=== PATIENT | female | born 1930 | race Caucasian/White ===

== ENCOUNTER 2016-10-25 23:39 | Emergency (ER) | payer MEDICARE ==
[~2016-10-25] VITALS: Ht 154.9 cm; Wt 41.7 kg
[~2016-10-25 23:39] MED LIST: ASPIRIN 81MG TA81 MG PO; CALAN SR240 MG PO; DIAZEPAM5 M1 PO; GLUCOPHAGE500 MG PO; LIPITOR10 MG PO; LISINOPRIL 10MG10 MG PO; LOSARTAN POTAS100 MG PO; LOSARTAN POTASS50 MG PO; LOVENOX 3030 MG/0.3 IJ; LOVENOX40 MG/0.4 SC; NIACIN250 MG PO; NORCO 325 MG-51 TAB PO; TOPROL XL 25MG25 MG PO; VALIUM 2MG TABLE2 MG PO; VENTOLIN H0.09 MG/Ac IH; VITAMIN D1000 IU PO; Zithromax500 MG PO
--- NOTE | 2016-10-26 00:07 | Emergency Room Report ---
History of Present Illness Time Seen by [id number] Presenting Problem in Triage Pt arrived:Walked Presenting Problem:PT ADVISES THAT SHE FELL ONTO A LAMINATE FLOOR. PT HAS MULTIPLE SKIN TEARS ON ARMS AND LEGS. 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 N Clinical Suspician of Infection? N Mental Status: 1 - Regular (Normal Baseline) Sepsis Risk:Low Sepsis Risk Have you (or family members/close friends) recently traveled outside the [place]? N If Yes, where/when: Have you had exposure to infectious disease within the past month? N TB? Other? Specify: Source patient, RN notes reviewed, family, old records Exam Limitations no limitations Comment accidental fall with head and facial trauma but no loc and has lac lt upper ext and has lt rib and upper abd pain Cardiac Chest Pain Chest pain indicative of cardiac No Timing/Duration this evening Severity moderate ALLERGIES Coded Allergies: Tetanus Vaccines and Toxoid (TETANUS VACCINES & TOXOID) (08/15/16) streptomycin (08/15/16) Home Medications Active Scripts HYDROCODONE/ACETAMINOPHEN ([place] 5-325 Tablet) 1 TAB PO Q6HP PRN MODERATE PAIN #60 TAB Prov: 08/19/16 Reported Medications Diazepam (Valium 2MG) 2 MG PO TID PRN Albuterol Sulfate (Ventolin Hfa) 0.09 MG IH QID METFORMIN HCL (Glucophage) 500 MG PO TID Metoprolol Succinate Xl (Toprol Xl) 25 MG PO DAILY Atorvastatin Calcium (Lipitor 10MG) 10 MG PO QHS ASPIRIN (Aspirin) 81 MG PO DAILY Verapamil Hcl (Calan SR 240MG) 240 MG PO DAILY Losartan Potassium (Losartan 50MG) 50 MG PO DAILY #30 TAB CHOLECALCIFEROL (VITAMIN D3) (Vitamin D3) 1,000 IUNITS PO DAILY History Medical History General CAD? Yes Angina: No NM: Yes Hypertension? Yes Hyperlipidemia? Yes CHF? No DVT? No PE? No COPD? No Asthma? No Anemia? Yes GERD? Yes Gastric ulcers? No GI Bleed? No Hernia? No Thyroid Problems? No Hypothyroidism? No CVA? No Seizures? No Diabetes? Yes Insulin Dependent: No Insulin Pump: No Home FSBS? Yes Renal Insuffiency? No End Stage Renal Disease? No UTI? No Stones? Yes BPH? No GB Disease: Yes Nephritic Syndrome? No Asplenia? No Hepatitis? No Sickle Cell Disease? No Arthritis? Yes Migraines? No Cataracts? Yes Glaucoma? No MRSA? No HIV? 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 Yes Depression? Yes Cancer? Yes Site: SKIN More? Yes Additional hx: MACULAR DEG-LEFT EYE Immunization Hx DT/Tetanus N Flu REFUSES Pneumonia Refuses Surgical Hx Previous Surgery?Y Coronary Artery Bypass ANGIOPLASTY PARTIAL RIGHT HIP REPLACE Family History Family Hx Diabetes Yes CAD Yes Hypertension Yes Hyperlipidemia Yes Cancer No TB Yes Social History Smoking Hx Smoker: Current Every Day Smoker Tobacco: Yes Type Cigarettes Packs/day 1 1/2 - 2 Packs Alcohol Alcohol: No Drugs none Review of Systems All Other Systems Reviewed and Negative Constitutional denies fever Eyes denies drainage ENT denies: ear discharge, nose discharge. Respiratory see HPI, denies cough, denies shortness of breath, other Cardiovascular denies chest pain, denies palpitations Gastrointestinal see HPI, abdominal pain, denies diarrhea, denies vomiting Genitourinary denies: dysuria, frequency, hesitancy, hematuria. Musculoskeletal denies back pain, denies joint pain, denies joint swelling, denies neck pain Skin see HPI, denies rash Psychiatric/Neurological headache, denies seizure Physical Exam Vital Signs Vital Signs Date Time Temp Pulse Resp B/P Pulse O2 O2 Flow FiO2 Ox Delivery Rate 10/26 0223 79 20 150/95 99 10/26 0050 69 20 182/73 99 10/25 2346 98.4 57 18 195/66 98 - WBC >12,000 or <4,000 or 10% bands? 2 or more SIRS Criteria Met? B/P:150/95 MAP:109 Creatinine >2.0? UA output<0.5ml/kg/hr for 2 hrs? Platelet count >100,000? Lactate >2.0mmol/1? INR >1.2 or PTT > than 60 sec? Evidence of Organ Dysfunction? Provider documented clinical suspician of infection? N Sepsis Criteria Count: 0 Sepsis Risk: Low Sepsis Risk General Appearance no apparent distress Eye Exam - bilateral eye PERRL, bilateral eye EOMI Ear, Nose, Throat lt facial bruising and tenderness and facial bruising noted Neck supple Respiratory Status No: respiratory distress. Lung Sounds bilateral: lungs clear. left: decreased breath sounds. 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 No Results/Orders Laboratory Tests 10/26/16 0010: Amylase 79, Lipase 269 10/26/16 0010: Sodium 138, Potassium 4.5, Chloride 105, Carbon Dioxide 25, BUN 19 H, Creatinine 1.1 H, Estimated Creat Clear 24 L, Estimated GFR (MDRD) 47 L, Glucose 191 H, Calcium 9.4, Total Bilirubin 0.2, AST 42 H, ALT 31, Alkaline Phosphatase 107, Total Protein 6.7, Albumin 3.6, Globulin 3.1, Albumin/Globulin Ratio 1.2, WBC 10.0, RBC 3.56 L, Hgb 10.8 L, Hct 34.4 L, MCV 96.6, RDW 14.7, Plt Count 217, MPV 9.2, Gran % 71.5, Gran # 7.1, Lymphocytes % 19.9, Monocytes % 6.2, Eosinophils % 2.0, Basophils % 0.3, Lymphocytes # 2.0, Monocytes # 0.6, Eosinophils # 0.2, Basophils # 0.0, PUBS MCHC 31.5 L, MCH 30.4 Current Medication Orders Sig/Asndip Start time Last Medication Dose Route Stop Time Status Admin Lidocaine HCl 20 ML ONCE ONE 10/26 129 DC 10/26 SC 10/26 130 011 Multi-Ingredient 2 UDP ONCE ONE 10/26 114 DCr 10/26 Ointment TP 01/25 0116 0116 Sodium Chloride 1,000 ML .Q1H1M 10/26 0045 DC 10/26 IV 10/26 0145 0049 Sodium Chloride 10 ML PRN PRN 10/26 004 AC IV 10/27 0045 Sodium Chloride 1,000 ML .STK-MED ONE 10/26 0042 DC IV Multi-Ingredient 0 .STK-MED ONE 10/26 0037 DCr Ointment TP Sodium Chloride 10 ML PRN PRN 10/26 0015 AC IV 10/27 001 Lidocaine HCl 0 .STK-MED ONE 10/26 0000 DC .ROUTE Orders Procedure Date/time Status DIET-NOTHING BY MOUTH 10/[address] ABD & PELVIS W/ CONTRAST 10/[address] SCAN REQ 10/26 41 Complete PELVIS AP ONLY 10/26 004 Active LIPASE 10/26 004 Complete AMYLASE 10/26 004 Complete IV SALINE LOCK 10/[address] SINUS (MAX-FACIAL W/O CONT) 10/[address] HEAD W/O CONTRAST 10/[address] CERVICAL SPINE W/O CONT. 10/[address] SCAN REQ 10/[address] HEAD REQ 10/[address] SCAN REQ 10/26 0000 Complete [id number] VIEWS 10/26 Active CBC WITH AUTO DIFF 10/25 235 Complete CHEM 12 PROFILE 10/25 2358 Complete XRAY/CT/US XRAY/CT/US 1 XRAY chest, pelvis, rib XR interpretation by reviewed by me Xray Results no fracture seen XRAY/CT/US 2 CT head, C-spine, abdomen, pelvis, sinus CT interpretation by discussed w/radiologist Time results known: 234 CT Results abnormal (facial fx ) Procedures Laceration/Wound Repair Laceration/Wound Repair Risks/benefits discussed with pt/guardian? Yes Tetanus status up to date Wound Location upper arm Wound Length (cm) 5 Wound's Depth, Shape superficial Wound Explored no FB identified Risk of retained FB explained to pt/guardian? Yes Irrigated w/ Saline (ccs) 0 Wound Prep Hibiclens, Saline Anesthesia 1% Lidocaine, Local Volume Anesthetic (ccs) 3 Wound Debrided none Wound Repaired With sutures Suture Size/Type 5:0, 4:0, Ethilon Layer Closure No Total Number Sutures 13 Sterile Dressing Applied Yes Splint Applied No Sling Applied No Departure Departure Time of Disposition 021 Disposition DC Home or Self Care(routine) Clinical Impression Primary Impression: Facial fracture due to fall Secondary Impressions: Abdominal contusion Qualifiers: Encounter type: initial encounter Qualified Code: S30.1XXA - Contusion of abdominal wall, initial encounter Anemia Qualifiers: Anemia type: unspecified type Qualified Code: D64.9 - Anemia, unspecified Fall Qualifiers: Encounter type: initial encounter Qualified Code: W19.XXXA - Unspecified fall, initial encounter Laceration Renal insufficiency Condition STABLE Referrals Chris Murphy MD (Family) Patient Instructions DI for Facial Fracture Additional Instructions see pcp for follow up and suture out 12 days Discharge Counseling Counseled pt/family regarding diagnosis, test results, follow up needs ED Critical Care Critical Care No at 0242
[2016-10-26 00:20] LABS: HEMOGLOBIN 10.8 g/dL (12.2-16.2); LYMPH % 19.9 % (10-50.0)
[2016-10-26 02:51] VITALS: BP 186/79
--- NOTE | 2016-10-26 08:57 | RADIOLOGY REPORT PS360 ---
[id number] VIEWS HISTORY: LEFT RIB PAIN FOLLOWING FALL ORDERING PHYSICIAN: Char Jones MD PATIENT AGE: 86 years COMPARISON: None FINDINGS: A frontal view of the chest shows prior median sternotomy. There is cardiomegaly without failure with chronic interstitial changes.. Multiple views of the Left ribs were obtained. Nondisplaced fracture involves the lateral aspect of left seventh rib. Also noted is right hydronephrosis IMPRESSION: 1. Nondisplaced left seventh rib fracture with chronic changes. 2. Right hydronephrosis
--- NOTE | 2016-10-26 08:58 | RADIOLOGY REPORT PS360 ---
PELVIS AP ONLY HISTORY: Pain following injury fall ORDERING PHYSICIAN: Char Jones MD PATIENT AGE: 86 years COMPARISON: None FINDINGS: Bipolar right hip prosthesis is present. No obvious fracture or dislocation. Incidental note made of right hydronephrosis with contrast in the right dilated renal collecting system from the recent CT scan IMPRESSION: No acute fracture
--- NOTE | 2016-10-26 10:28 | RADIOLOGY REPORT PS360 ---
CT HEAD W/O CONTRAST HISTORY: Headache following injury FALL ORDERING PHYSICIAN: Char Jones MD PATIENT AGE: 86 years COMPARISON: 05/30/2015 TECHNIQUE: Axial images obtained without contrast. Brain and bone windows reviewed. FINDINGS: No midline shift, mass effect, intracranial hemorrhage, hydrocephalus, or extra-axial fluid collection is evident. There is generalized atrophy with hypoattenuation in the periventricular and subcortical region consistent with ischemic gliotic change from microvascular disease. No acute intracranial hemorrhage. No evidence of epidural or subdural hematoma. Hyperdensity left parieto-occipital region probably related to developing calcification The calvarium has an unremarkable appearance. No mastoid effusion. The visualized paranasal sinuses are unremarkable. IMPRESSION: 1. Atrophy with chronic ischemic change. 2. Probable parenchymal calcification left parietal occipital region may be confirmed with follow-up.
--- NOTE | 2016-10-26 10:32 | RADIOLOGY REPORT PS360 ---
CT CERVICAL SPINE W/O CONT INDICATION: FALL ORDERING PHYSICIAN: Char Jones MD PATIENT AGE: 86 years COMPARISON: None TECHNIQUE: Axial images are obtained without contrast. Sagittal and coronal reformatted images are reviewed as well. FINDINGS: Normal alignment. No fracture or dislocation. There is diffuse osteopenia. Multilevel degenerative disc disease with facet arthritic change. Osteosclerosis involves the right angle of the mandible anteriorly and may be related to an impacted molar. Upper thoracic images show fibrotic changes. IMPRESSION: 1. No acute fracture. 2. Osteopenia with multilevel degenerative disc disease and facet arthritic change
--- NOTE | 2016-10-26 10:37 | RADIOLOGY REPORT PS360 ---
CT SINUS (MAX-FACIAL W/O CONT) CLINICAL INDICATION: Facial pain, jaw pain, eye pain and injury, swelling and bruising over left eye cheek and chin FALL ORDERING PHYSICIAN: Char Jones MD PATIENT AGE: 86 years COMPARISON: None TECHNIQUE:Axial, sagittal, and coronal images are generated and reviewed without contrast COMPARISON: None FINDINGS:Minimally displaced fracture involves the lateral wall the left maxillary sinus. Minimally depressed fracture involving the left inferior orbital floor posteriorly. Air-fluid level left maxillary sinus. There is left facial soft tissue swelling and mild rightward nasal septal deviation. Bilateral TMJ osteoarthritis. Impacted right mandibular molar posteriorly. IMPRESSION: 1. Minimally displaced fractures of the lateral wall of the left maxillary sinus and infraorbital wall on the left
--- NOTE | 2016-10-26 10:52 | RADIOLOGY REPORT PS360 ---
CT ABD PELVIS W/ CONTRAST CLINICAL INDICATION: Left upper quadrant pain following injury FALL, RUQ PAIN ORDERING PHYSICIAN: Char Jones MD PATIENT AGE: 86 years COMPARISON: None TECHNIQUE: Axial images obtained with sagittal and coronal reformats. PROCEDURE: Oral Contrast: None IV Contrast: 75 mL Isovue-370 . FINDINGS: Lower thorax: Nondisplaced left seventh rib fracture noted. Chronic changes in the lung bases. Mitral valve annular calcification ABDOMEN: Liver: Coarse calcification at the hepatic dome. No hepatic laceration Gallbladder: Cholelithiasis Pancreas: No masses or peripancreatic fluid collections. Spleen: Unremarkable. Adrenals: Unremarkable Kidneys/ureters: Severe right and mild left renal pelvocaliectasis. Ureters do not appear dilated but obscured by motion artifact. No obvious obstructing ureteral calculi. Stomach bowel: Diverticulosis. Appendix: No evidence of appendicitis. PELVIS: Reproductive: Unremarkable Bladder: Distended urinary bladder ABDOMEN & PELVIS: Peritoneum: There is somewhat edematous appearance of the mid and upper abdomen question trace ascites. Lymph nodes: No enlarged lymph nodes apparent. Vasculature: No evidence of abdominal aortic aneurysm. No retroperitoneal hemorrhage evident. Bones: There is suggestion of a nondisplaced left seventh rib fracture laterally with minimal cortical depression actually better seen on the rib detail films. Artifact is present from right hip prosthesis IMPRESSION: 1. Severe right and mild left renal pelvocaliectasis which may be due to UPJ stenosis. 2. Edematous appearance of the mid and upper abdomen with question trace ascites etiology indeterminate. Follow-up recommended. 3. Left seventh rib fracture. 4. Other nonacute findings as described above
== END 2016-10-26 03:05 | disposition home or self-care (01) ==
LOC: ER 23:39
PROVIDERS: Emergency Medicine
PROC: 0HQBXZZ Repair Right Upper Arm Skin, External Approach (ICD-10-PCS; principal; 2016-10-25)
DX: S30.1XXA Contusion of abdominal wall, initial encounter (principal); S41.111A Laceration without foreign body of right upper arm, initial encounter; W01.10XA Fall on same level from slipping, tripping and stumbling with subsequent striking against unspecified object, initial encounter; Y92.009 Unspecified place in unspecified non-institutional (private) residence as the place of occurrence of the external cause; I10 Essential (primary) hypertension; Z72.0 Tobacco use; K21.9 Gastro-esophageal reflux disease without esophagitis
CPT/HCPCS: Q9967

== ENCOUNTER 2017-01-14 21:48 | Inpatient (IN) | payer MEDICARE ==
[~2017-01-14] VITALS: Ht 154.9 cm; Wt 45.1 kg
[2017-01-14 21:52] VITALS: BP 180/71
[2017-01-14] MEDS ORDERED: GLUCOPHAGE 850850 MG PO (22:01)
[2017-01-14] MEDS ORDERED: NIACIN250 MG PO (22:02)
[2017-01-14] MEDS ORDERED: IRON TABLETS325 MG PO (22:04)
[2017-01-14] MEDS ORDERED: MECLIZINE HYDRO25 MG PO (22:05)
[2017-01-14] MEDS ORDERED: GLYBURIDE2.5 MG PO (22:05)
[2017-01-14 22:43] LABS: AEROMONAS NOT DETECTED (NOT DETECTE); ASTROVIRUS NOT DETECTED (NOT DETECTE); CYCLOSPORA CAYETANENSIS NOT DETECTED (NOT DETECTE); E COLI O157 NOT DETECTED (NOT DETECTE); ENTEROAGGREGATIVE E COLI NOT DETECTED (NOT DETECTE); ENTEROPATHOGENIC E COLI NOT DETECTED (NOT DETECTE); ENTEROTOXIGENIC E COLI NOT DETECTED (NOT DETECTE); NOROVIRUS NOT DETECTED (NOT DETECTE); SAPOVIRUS NOT DETECTED (NOT DETECTE); SHIGA-LIKE TOXIN PROD. E COLI NOT DETECTED (NOT DETECTE); SHIGELLA/ENTEROINVASIVE E COLI NOT DETECTED (NOT DETECTE); VIBRIO CHOLERAE NOT DETECTED (NOT DETECTE)
--- NOTE | 2017-01-14 22:49 | Emergency Room Report ---
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 N Clinical Suspician of Infection? Y Mental Status: 1 - Regular (Normal Baseline) Sepsis Risk:Low Sepsis Risk Have you (or family members/close friends) recently traveled outside the [place]? N If Yes, where/when: Have you had exposure to infectious disease within the past month? N TB? Other? Specify: Comment The patient complains of diarrhea, vomiting, and abdominal pain. She thinks it started today, but is uncertain. She says that she has had too numerous episodes of diarrhea to count. She says that she gets diarrhea off and on in the past, but not this severe and not associated with abdominal pain and vomiting. She has not seen any blood in her diarrhea. She has felt chills but no documented fever. No recent antibiotics or travel or exposures. She says her abdominal pain is RIGHT lower quadrant "on my side". ALLERGIES Coded Allergies: Tetanus Vaccines and Toxoid (TETANUS VACCINES & TOXOID) (08/15/16) streptomycin (08/15/16) Home Medications Active Scripts HYDROCODONE/ACETAMINOPHEN ([place] 5-325 Tablet) 1 TAB PO Q6HP PRN MODERATE PAIN #60 TAB Prov: 08/19/16 Reported Medications Diazepam (Valium 2MG) 2 MG PO TID PRN Albuterol Sulfate (Ventolin Hfa) 0.09 MG IH QID Atorvastatin Calcium (Lipitor 10MG) 10 MG PO QHS ASPIRIN (Aspirin) 81 MG PO DAILY Verapamil Hcl ([place] SR 240MG) 240 MG PO DAILY METFORMIN HCL (Glucophage) 1,000 MG PO DAILY Metoprolol Succinate Xl (Toprol Xl) 50 MG PO DAILY CHOLECALCIFEROL (VITAMIN D3) (Vitamin D3) 1,000 IUNITS PO DAILY Losartan Potassium (Losartan 50MG) 25 MG PO DAILY #30 TAB METFORMIN HCL (Glucophage 850 Mg Tablet) 500 MG PO BEDTIME Niacin 250 MG PO BID Ferrous Sulfate (Iron Tablet) 325 MG PO DAILY Glyburide (Glyburide 2.5MG) 1.25 MG PO DAILY-DM Meclizine Hcl (Meclizine Hydrochloride) 25 MG PO TIDP PRN dizziness History Medical History General CAD? Yes Angina: No CT: Yes Hypertension? Yes Hyperlipidemia? Yes CHF? No DVT? No PE? No COPD? No Asthma? No Anemia? Yes GERD? Yes Gastric ulcers? No GI Bleed? No Hernia? No Thyroid Problems? No Hypothyroidism? No CVA? No Seizures? No Diabetes? Yes Insulin Dependent: No Insulin Pump: No Home FSBS? Yes Renal Insuffiency? No End Stage Renal Disease? No UTI? No Stones? Yes BPH? No GB Disease: Yes Nephritic Syndrome? No Asplenia? No Hepatitis? No Sickle Cell Disease? No Arthritis? Yes Migraines? No Cataracts? Yes Glaucoma? No MRSA? No HIV? 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 Yes Depression? Yes Cancer? Yes Site: SKIN More? Yes Additional hx: MACULAR DEG-LEFT EYE Immunization Hx DT/Tetanus N Flu REFUSES Pneumonia Refuses Surgical Hx Previous Surgery?Y Coronary Artery Bypass ANGIOPLASTY PARTIAL RIGHT HIP REPLACE Family History Family Hx Diabetes Yes CAD Yes Hypertension Yes Hyperlipidemia Yes Cancer No TB Yes Social History Smoking Hx Smoker: Never Smoker Tobacco: No Packs/day 1 1/2 - 2 Packs Alcohol Alcohol: No Review of Systems All Other Systems Reviewed and Negative Constitutional chills, denies fever Gastrointestinal abdominal pain, diarrhea, nausea, vomiting Genitourinary denies: dysuria, frequency. Physical Exam Vital Signs Vital Signs Date Time Temp Pulse Resp B/P Pulse O2 O2 Flow FiO2 Ox Delivery Rate 01/15 0056 82 18 188/75 95 01/14 2352 62 18 189/90 95 01/14 2322 60 18 199/87 97 01/14 2232 58 18 180/71 97 01/14 2152 98.7 52 18 180/ 97 - WBC >12,000 or <4,000 or 10% bands? 2 or more SIRS Criteria Met? B/P:180/ MAP:107 Creatinine >2.0? UA output<0.5ml/kg/hr for 2 hrs? Platelet count >100,000? Lactate >2.0mmol/1? INR >1.2 or PTT > than 60 sec? Evidence of Organ Dysfunction? Provider documented clinical suspician of infection? Y Sepsis Criteria Count: 0 Sepsis Risk: Low Sepsis Risk General Appearance normal appearance, WD/WN Eye Exam - bilateral eye normal exam, bilateral eye PERRL, bilateral eye EOMI Ear, Nose, Throat hearing grossly normal, normal ENT inspection Neck normal inspection, non-tender, supple, full range of motion Respiratory Status Yes: trachea midline, chest symmetrical, non tender chest. No: respiratory distress. Lung Sounds bilateral: normal breath sounds, lungs clear. 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 No Results/Orders Laboratory Tests 01/14/175: Sodium 138, Potassium 4.6, Chloride 101, Carbon Dioxide 19 L, BUN 30 H, Creatinine 1.4 H, Estimated Creat Clear 20 L, Estimated GFR (MDRD) 36 L, Glucose 242 H, Calcium 9.5, Total Bilirubin 0.4, AST 60 H, ALT 44, Alkaline Phosphatase 96, Total Protein 7.3, Albumin 3.6, Globulin 3.7 H, Albumin/ Globulin Ratio 1.0 L, Amylase 227 H, Lipase 268, WBC 17.4 H, RBC 3.87 L, Hgb 11.6 L, Hct 36.6 L, MCV 94.6, RDW 14.1, Plt Count 228, MPV 7.1 L, Gran % 86.4 H, Gran # 15.0 H, Total Counted 100, Lymphocytes % 9.4 L, Monocytes % 4.1, Eosinophils % 0.1, Basophils % 0.1, Neutrophils 84 H, Lymphocytes (Manual) 10, Lymphocytes # 1.6, Monocytes (Manual) 6, Monocytes # 0.7, Eosinophils # 0.0, Basophils # 0.0, Platelet Estimate NORMAL, Poikilocytosis 2+, Anisocytosis 1+, Hulbert Cells 2+, PUBS MCHC 31.8, MCH 30.1 01/14/17 2223: Stl Cyclospora species NOT DETECTED, Stool Rotavirus (PCR) NOT DETECTED, Stool Campylobacter PCR NOT DETECTED, Stool Giardia Lamblia PCR NOT DETECTED, Stl Norovirus GI/GII PCR NOT DETECTED, Adenovirus (PCR) NOT DETECTED, C. difficile Tox (PCR) NOT DETECTED, E. coli (PCR) NOT DETECTED, Yersinia (PCR) NOT DETECTED Current Medication Orders Sig/Sandip Start time Last Medication Dose Route Stop Time Status Admin Ertapenem 1 GM ONCE ONE 01/15 0100 DC 01/15 Sodium Chloride 50 ML IV 01/15 0129 0110 Ondansetron HCl 4 MG ONCE ONE 01/14 2230 DC 01/14 IV 01/14 223 2226 Ondansetron HCl 0 .STK-MED ONE 01/14 2225 DC .ROUTE Orders Procedure Date/time Status Decision to admit 01/[address] ABD & PELVIS W/O CONTRAST 01/[address] ABD/PELVIS REQ 01/14 2313 Complete IV SALINE LOCK 01/14 2252 Active LIPASE 01/14 2241 Complete CBC WITH AUTO DIFF 01/14 2241 Complete CHEM 12 PROFILE 01/14 2241 Complete AMYLASE 01/14 2241 Complete DIFFERENTIAL-WBC 01/14 2235 Complete DIARRHEA PANEL, PCR 01/14 2233 Complete XRAY/CT/US XRAY/CT/US CT abdomen, pelvis Comment CT scan interpreted by [facility] radiologist. Faxed report received and reviewed: Cholelithiasis with changes consistent with acute cholecystitis. Pericholecystic fluid. Gallbladder wall thickened. Progress - 1 AM: I have discussed the case with Dr. Murphy who agrees to admit the patient to the hospital. We discussed the patient's clinical information, including history, exam, laboratory and radiology results and ED course. Per hospital procedure, I will write temporary bridge inpatient orders on the patient. Specific orders requested by the admitting physician: Antibiotics, fluids, surgical consult Departure Departure Disposition Still a Patient Clinical Impression Primary Impression: Acute cholecystitis Condition STABLE Referrals Chris Murphy MD ([facility]) ED Critical Care Critical Care No at 0208
[2017-01-14 22:54] LABS: HEMOGLOBIN 11.6 g/dL (12.2-16.2); LYMPH # 1.6 K/mm3 (0.7-4.5); LYMPH % 9.4 % (10-50.0)
[2017-01-14 23:46] LABS: NEUTROPHILS 84 % (42-76)
[2017-01-15] VITALS (8 sets, daily range): BP systolic 140–187; BP diastolic 55–90
--- NOTE | 2017-01-15 08:48 | HISTORY AND PHYSICAL REPORT ---
History and Physical ([facility]) Date of admission: 01/15/17 Chief complaint: Vomiting, diarrhea and abdominal pain History: History of Present Illness: This is a 89-year-old white female with known cholelithiasis who presented to the emergency room with a one to two-day history of nausea, vomiting, diarrhea, and abdominal pain. She was worked up in the emergency room and in addition to the cholelithiasis was also noted to have cholecystitis on her CT scan. She has been admitted for further treatment and surgical consultation. Since admission, her pain has subsided somewhat. SHe has continued with diarrhea and noted to have some blood in her stool. She attributes this to chronic problems she has had with hemorrhoids. She denies chest pain, palpitations, or increased shortness of breath. Past Medical History: Medical History: CAD? Yes Angina: No OR: Yes Hypertension? Yes Hyperlipidemia? Yes CHF? No DVT? No PE? No COPD? No Asthma? No Anemia? Yes GERD? Yes Gastric ulcers? No GI Bleed? No Hernia? No Thyroid Problems? No Hypothyroidism? No CVA? No Seizures? No Diabetes? Yes Insulin Dependent: No Insulin Pump: No Home FSBS? Yes Renal Insuffiency? No UTI? No Stones? No BPH? No GB Disease: Yes Nephritic Syndrome? No Asplenia? No Hepatitis? No Sickle Cell Disease? No Arthritis? Yes Migraines? No Cataracts? Yes Glaucoma? No MRSA? No HIV? 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 Yes Depression? Yes Cancer? Yes Site: SKIN More? Yes Additional hx: MACULAR DEG-LEFT EYE Additional medical history: She has a history of coronary artery disease status post CABG Surgical history: Previous Surgery?Y Coronary Artery Bypass 1992 ANGIOPLASTY RIGHT HIP REPLACE Medications: Active Scripts HYDROCODONE/ACETAMINOPHEN ([place] 5-325 Tablet) 1 TAB PO Q6HP PRN MODERATE PAIN #60 TAB Prov: 08/19/16 Reported Medications Diazepam (Valium 2MG) 2 MG PO TID PRN Atorvastatin Calcium (Lipitor 10MG) 10 MG PO QHS ASPIRIN (Aspirin) 81 MG PO DAILY Verapamil Hcl (Calan SR 240MG) 240 MG PO DAILY METFORMIN HCL (Glucophage) 1,000 MG PO DAILY Metoprolol Succinate Xl (Toprol Xl) 50 MG PO DAILY CHOLECALCIFEROL (VITAMIN D3) (Vitamin D3) 1,000 IUNITS PO DAILY Losartan Potassium (Losartan 50MG) 25 MG PO DAILY #30 TAB METFORMIN HCL (Glucophage 850 Mg Tablet) 500 MG PO BEDTIME Niacin 250 MG PO BID Ferrous Sulfate (Iron Tablet) 325 MG PO DAILY Glyburide (Glyburide 2.5MG) 1.25 MG PO DAILY-DM Meclizine Hcl (Meclizine Hydrochloride) 25 MG PO TIDP PRN dizziness Allergies: Coded Allergies: Tetanus Vaccines and Toxoid (TETANUS VACCINES & TOXOID) (08/15/16) streptomycin (08/15/16) Family History: Family history: Postive for: DM, cancer. Social History: Smoking Hx Tobacco: Yes Smoker: Current Every Day Smoker Type: Cigarettes Packs/day: < 1 Pack Are you exposed to second hand No Alcohol: Alcohol: No Hx of Drug Use: Drug Use? No Patien't marital status is: Patient's support system is: excellent Review of Systems: Patient unresponsive? No Constitutional No: chills, fatigue, lethargy. ENT Positive for: hearing loss. No: nasal congestion, sore throat. Cardiovascular No: DEL RIO, PND, chest pain, edema, palpitations. Respiratory No: shortness of air, hemoptysis, pleuritic pain, productive cough (sputum). GI Positive for: abdominal pain (see HPI). (female) No: flank pain, hematuria. Skin No: bruising, itching. Neurological No: confusion, dizziness, slurred speech, syncope. Eyes No: blurry vision, vision loss. Musculoskeletal Positive for: joint pain. No: joint swelling. Endocrine No: cold intolerance. Psychiatric No: anxious, confused, change in mental status. Physical Exam: Vital signs: 1ST Vital Signs Result Date Time Pulse Ox 97 01/15 2152 B/P 180/71 01/15 2152 Temp 98.7 01/15 2152 Pulse 52 01/15 2152 Resp 18 01/15 2152 O2 Delivery ROOM AIR 01/15 0207 Exam: General appearance: alert, appears not to feel well. Eyes: anicteric, conjunctiva clear ENT: dry mucous membranes, hearing deficit Neck: no carotid bruit, no thyromegaly Cardiovascular: regular rate & rhythm, Gr 1/6 systolic murmur Respiratory: clear to auscultation ABD: thin, soft, nondistended. Mild diffuse low abdominal tenderness. Extremities: no peripheral edema Skin: dry, normal color, warm Neuro: alert, no focal deficit Lab data: Labs: Laboratory Tests 01/14/172234: Sodium 138, Potassium 4.6, Chloride 101, Carbon Dioxide 19 L, BUN 30 H, Creatinine 1.4 H, Estimated Creat Clear 20 L, Estimated GFR (MDRD) 36 L, Glucose 242 H, Calcium 9.5, Total Bilirubin 0.4, AST 60 H, ALT 44, Alkaline Phosphatase 96, Total Protein 7.3, Albumin 3.6, Globulin 3.7 H, Albumin/ Globulin Ratio 1.0 L, Amylase 227 H, Lipase 268, WBC 17.4 H, RBC 3.87 L, Hgb 11.6 L, Hct 36.6 L, MCV 94.6, RDW 14.1, Plt Count 228, MPV 7.1 L, Gran % 86.4 H, Gran # 15.0 H, Total Counted 100, Lymphocytes % 9.4 L, Monocytes % 4.1, Eosinophils % 0.1, Basophils % 0.1, Neutrophils 84 H, Lymphocytes (Manual) 10, Lymphocytes # 1.6, Monocytes (Manual) 6, Monocytes # 0.7, Eosinophils # 0.0, Basophils # 0.0, Platelet Estimate NORMAL, Poikilocytosis 2+, Anisocytosis 1+, [place] Cells 2+, PUBS MCHC 31.8, MCH 30.1 01/14/173: Stl Cyclospora species NOT DETECTED, Stool Rotavirus (PCR) NOT DETECTED, Stool Campylobacter PCR NOT DETECTED, Stool Giardia Lamblia PCR NOT DETECTED, Stl Norovirus GI/GII PCR NOT DETECTED, Adenovirus (PCR) NOT DETECTED, C. difficile Tox (PCR) NOT DETECTED, E. coli (PCR) NOT DETECTED, Yersinia (PCR) NOT DETECTED Diagnosis(es): 1. Acute cholecystitis 2. Cholelithiases 3. HTN (hypertension) 4. Diabetes mellitus type 2 in nonobese 5. Hx of arteriosclerotic cardiovascular disease 6. Tobacco use disorder Plan: She has been started on IV Invanz. We'll repeat blood work this morning. Surgical consult has been requested. Will resume on some of her home medication for hypertension. She is currently on sliding scale insulin with q.i.d. fingerstick sugars. Will obtain CXR and EKG for pre-op assessment and also consult cardiology for preop clearance. at 1159 Plan: She has been started on IV Invanz. We'll repeat blood work this morning. Surgical consult has been requested. Will resume on some of her home medication for hypertension. She is currently on sliding scale insulin with q.i.d. fingerstick sugars.
[2017-01-15 09:16] LABS: HEMOGLOBIN 11.7 g/dL (12.2-16.2); LYMPH # 1.4 K/mm3 (0.7-4.5); LYMPH % 6.2 % (10-50.0)
[2017-01-15 10:14] LABS: AEROMONAS NOT DETECTED (NOT DETECTE); ASTROVIRUS NOT DETECTED (NOT DETECTE); CYCLOSPORA CAYETANENSIS NOT DETECTED (NOT DETECTE); E COLI O157 NOT DETECTED (NOT DETECTE); ENTEROAGGREGATIVE E COLI NOT DETECTED (NOT DETECTE); ENTEROPATHOGENIC E COLI NOT DETECTED (NOT DETECTE); ENTEROTOXIGENIC E COLI NOT DETECTED (NOT DETECTE); NOROVIRUS NOT DETECTED (NOT DETECTE); SAPOVIRUS NOT DETECTED (NOT DETECTE); SHIGA-LIKE TOXIN PROD. E COLI NOT DETECTED (NOT DETECTE); SHIGELLA/ENTEROINVASIVE E COLI NOT DETECTED (NOT DETECTE); VIBRIO CHOLERAE NOT DETECTED (NOT DETECTE)
--- NOTE | 2017-01-15 10:20 | CONSULT NOTE ---
Standard Demographics Patient Demo Date of Consultation: 01/15/17 Referring Provider: Jorge Murphy MD Reason for Consultation: GALLBLADDER PRIMARY DIAGNOSIS: ACUTE CHOLECYSTITIS Allergies: Coded Allergies: Tetanus Vaccines and Toxoid (TETANUS VACCINES & TOXOID) (08/15/16) streptomycin (08/15/16) History of Present Illness Chief Complaint: Diarrhea History of Present Illness: Patient is an 86-year-old white female with several medical comorbidities. She has long-standing history of chronic diarrhea. She presented to the emergency department late yesterday evening with quite severe refractory diarrhea. Denies any appreciable abdominal pain but had some discomfort in her RIGHT lower quadrant. She also had some nausea. She underwent a noncontrast CT scan of the abdomen and pelvis which revealed findings of cholelithiasis and CT evidence suggestive of cholecystitis. She was admitted for inpatient management and surgical consultation. Patient describes mostly diarrhea. She's had some bloody mucousy diarrhea. Past Medical History Reports: CAD, diabetes mellitus, GERD. Surgical History Previous Surgery?Y Coronary Artery Bypass ANGIOPLASTY PARTIAL RIGHT HIP REPLACE Allergies Coded Allergies: Tetanus Vaccines and Toxoid (TETANUS VACCINES & TOXOID) (08/15/16) streptomycin (08/15/16) Medications: Active Scripts HYDROCODONE/ACETAMINOPHEN ([place] 5-325 Tablet) 1 TAB PO Q6HP PRN MODERATE PAIN #60 TAB Prov: 08/19/16 Reported Medications Diazepam (Valium 2MG) 2 MG PO TID PRN Atorvastatin Calcium (Lipitor 10MG) 10 MG PO QHS ASPIRIN (Aspirin) 81 MG PO DAILY Verapamil Hcl (Calan SR 240MG) 240 MG PO DAILY METFORMIN HCL (Glucophage) 1,000 MG PO DAILY Metoprolol Succinate Xl (Toprol Xl) 50 MG PO DAILY CHOLECALCIFEROL (VITAMIN D3) (Vitamin D3) 1,000 IUNITS PO DAILY Losartan Potassium (Losartan 50MG) 25 MG PO DAILY #30 TAB METFORMIN HCL (Glucophage 850 Mg Tablet) 500 MG PO BEDTIME Niacin 250 MG PO BID Ferrous Sulfate (Iron Tablet) 325 MG PO DAILY Glyburide (Glyburide 2.5MG) 1.25 MG PO DAILY-DM Meclizine Hcl (Meclizine Hydrochloride) 25 MG PO TIDP PRN dizziness Smoking Hx Tobacco: Yes Smoker: Current Every Day Smoker Type: Cigarettes Packs/day: < 1 Pack Are you/the child exposed to second-hand smoke: Yes Alcohol Alcohol: No Hx of Drug Use Drug Use? No Review of Systems Constitutional No: chills. Skin No: contusions. Immune/allergy No: anaphalaxis. Eyes No: vision loss. ENT No: hearing loss. Respiratory No: shortness of air. Cardiovascular No: palpitations. GI Positive for: abdomen, diarrhea, hematochezia. (female) No: hematuria. Musculoskeletal No: extremity swelling. Heme No: bruising. Endocrine No: cold intolerance. Physical Exam Exam General appearance no acute distress Respiratory clear to auscultation Cardiovascular regular rate and rhythm (MURMUR) Plan Plan: Patient's clinical presentation is not consistent with cholecystitis with diarrhea and RIGHT lower quadrant abdominal tenderness. However, her noncontrast CT scan which I reviewed reveals markedly abnormal gallbladder with significant pericholecystic fluid and calcified gallstones. She also does have diffuse vascular calcifications including aorta and mesenteric vessels. Given the markedly abnormal gallbladder on CT scan this is most likely the etiology however, as stated above, her presenting symptoms and exam are atypical. I will plan to obtain a gallbladder ultrasound. She will need cardiology evaluation as she may be too high a risk for surgical intervention and require cholecystostomy tube placed radiographically for drainage. This could require transfer. However, at this time I would continue with antibiotics and plan to obtain gallbladder ultrasound as well as cardiology risk assessment. at 1020
--- NOTE | 2017-01-15 13:47 | PHARMACY CLINIC NOTE ---
Patient Demographics Patient Demographics Admission date: 01/15/17 Date: 01/15/17 Time: 1346 Allergies Coded Allergies: Tetanus Vaccines and Toxoid (TETANUS VACCINES & TOXOID) (08/15/16) streptomycin (08/15/16) HEIGHT- FT: 5 IN: 1.00 K.076 VTE General Information Labs: Laboratory Tests 01/15 01/14 0905 2235 Hematology Hgb (12.2 - 16.2 g/dL) 11.7 L 11.6 L Hct (37.0 - 47.0 %) 35.7 L 36.6 L Plt Count (142 - 424 K/mm3) 233 228 Disclaimer The following section includes nursing documentation that has been pulled in for pharmacy review. Patient's VTE score: 3 Patient's VTE Risk: LOW RISK Clinical trial participant? No VTE prophylaxis NQF [id number] VTE prophylaxis ordered? Yes Type of prophylaxis/treatment: ALE at 1347
[2017-01-15] MEDS ORDERED: AMARYL2 MG PO (13:48)
--- NOTE | 2017-01-15 14:14 | RADIOLOGY REPORT PS360 ---
CT ABD PELVIS W/O CONTRAST COMPARISON: CT scan abdomen pelvis 10/26/2016 HISTORY: Abdominal pain, vomiting and diarrhea TECHNIQUE: Multiaxial scans obtained from the diaphragms the pelvic floor were performed without IV or oral contrast. Sagittal and coronal reformatted images were evaluated as well. FINDINGS: Scans through the lower chest show clear lower lung sahu. There is minimal atelectasis right posterior gutter. There is generalized cardio megaly and there is evidence of previous coronary bypass procedure. The liver spleen and stomach appear grossly normal, stomach is somewhat distended with ingested food particles and fluid. The pancreas is normal. The gallbladder is markedly abnormal with a diffusely thickened wall and pericholecystic fluid. There are multiple gallstones within the gallbladder. The adrenal glands are normal. The kidneys are normal in size and there are no calculi and is no obstructive uropathy of either kidney. There is prominent diffuse arteriosclerotic calcification of the abdominal aorta but there is no aneurysm. Small bowel appears grossly normal. The appendix is normal caliber and partially air-filled. There is minimal scattered stool throughout the colon. There is diffuse diverticulosis of the sigmoid colon with is no definite diverticulitis. The uterus is small with a coarse calcification likely within a fibroid. Urinary bladder is grossly normal but images are degraded due to streak artifact from the right hip prosthesis. IMPRESSION: Cholelithiasis with changes suggesting acute cholecystitis, I agree with the [facility] report.
--- NOTE | 2017-01-15 14:14 | RADIOLOGY REPORT PS360 ---
CHEST-PORTABLE COMPARISON: PA and lateral chest 09/07/2016 HISTORY: Abdominal pain suspect cholecystitis TECHNIQUE: Portable upright chest FINDINGS: There is hyperexpansion lung sahu. Is no infiltrate. There is mild generalized cardio megaly and there are sternal wire sutures and surgical clips from previous bypass procedure. There is no pleural fluid. Is mild degenerative change right shoulder. IMPRESSION: Mild COPD mild cardio megaly, no acute chest pathology noted
[2017-01-16 04:06] VITALS: BP 135/49
[2017-01-16 07:01] LABS: LYMPH # 2.2 K/mm3 (0.7-4.5); LYMPH % 13.5 % (10-50.0)
[2017-01-16 07:03] LABS: HEMOGLOBIN 10.2 g/dL (12.2-16.2)
[2017-01-16 08:00] VITALS: BP 161/68
--- NOTE | 2017-01-16 08:40 | ACUTE CARE PROGRESS NOTE (QUA) ---
Progress Notes Subjective Date 01/16/17 Time 0833 Note Feeling better this AM. Did sleep some. Tolerated clear liquids yesterday and is NPO this AM. Incontinent of stool this AM. Abdomen is sore. No breathing difficulties and denies SOB. Has been up to the bathroom. Is always dizzy when up and has to be careful. Objective Findings Laboratory Tests 01/16/17 0625: Sodium 141, Potassium 3.8, Chloride 109 H, Carbon Dioxide 24, BUN 15, Creatinine 0.9, Estimated Creat Clear 32 L, Estimated GFR (MDRD) 59, Glucose 64 L, Calcium 8.5, WBC 16.0 H, RBC 3.40 L, Hgb 10.2 L, Hct 31.2 L, MCV 91.9, RDW 14.5, Plt Count 200, MPV 6.5 L, Gran % 81.2 H, Gran # 13.0 H, Lymphocytes % 13.5, Monocytes % 4.2, Eosinophils % 0.9, Basophils % 0.1, Lymphocytes # 2.2, Monocytes # 0.7, Eosinophils # 0.1, Basophils # 0.0, PUBS MCHC 32.3, MCH 29.7 01/16/17 0611: POC Glucose 66 L 01/15/17 2006: POC Glucose 203 H 01/15/17 1130: POC Glucose 133 H 01/15/17 1000: Stl Cyclospora species NOT DETECTED, Stool Rotavirus (PCR) NOT DETECTED, Stool Campylobacter PCR NOT DETECTED, Stool Giardia Lamblia PCR NOT DETECTED, Stl Norovirus GI/GII PCR NOT DETECTED, Adenovirus (PCR) NOT DETECTED, C. difficile Tox (PCR) NOT DETECTED, E. coli (PCR) NOT DETECTED, Yersinia (PCR) NOT DETECTED 01/15/17 0905: Sodium 139, Potassium 4.4, Chloride 104, Carbon Dioxide 21 L, BUN 21 H, Creatinine 1.1 H, Estimated Creat Clear 26 L, Estimated GFR (MDRD) 47 L, Glucose 172 H, Calcium 9.0, Total Bilirubin 0.5, AST 47 H, ALT 41, Alkaline Phosphatase 90, Total Protein 7.1, Albumin 3.4, Globulin 3.7 H, Albumin/ Globulin Ratio 0.9 L, Amylase 90, Lipase 115, WBC 22.3 *H, RBC 3.88 L, Hgb 11.7 L, Hct 35.7 L, MCV 92.0, RDW 14.3, Plt Count 233, MPV 7.5, Gran % 89.4 H , Gran # 20.0 H, Lymphocytes % 6.2 L, Monocytes % 4.3, Eosinophils % 0.1, Basophils % 0.1, Lymphocytes # 1.4, Monocytes # 1.0, Eosinophils # 0.0, Basophils # 0.0, PUBS MCHC 32.7, MCH 30.1 Vital Signs Date Time Temp Pulse Resp B/P Pulse O2 O2 Flow FiO2 Ox Delivery Rate 01/16 0800 97.7 77 16 161/68 95 ROOM AIR 01/16 0406 98.2 66 16 135/49 96 ROOM AIR 01/15 2020 98.5 58 18 143/55 95 01/15 2006 98.5 58 18 143/55 95 ROOM AIR 01/15 1600 98.3 67 16 146/66 96 ROOM AIR 01/15 1014 98.8 104 20 185/87 95 Current Medications Ertapenem 1 GM Q24H IV Sodium Chloride 50 ML Ertapenem 1 GM Q24H IV (DC) Sodium Chloride 50 ML Ondansetron HCl 0 .STK-MED ONE .ROUTE (DC) Ertapenem 0.5 GM Q24H IV (DC) Sodium Chloride 50 ML Irbesartan 75 MG DAILY PO Metoprolol Succinate 50 MG DAILY PO Verapamil HCl 240 MG DAILY PO Diagnostic Test (Pha) 1 EACH W/MEALS&HS FS Insulin Human [rDNA origin] SEE ADMIN CRITERIA FOR LOW INTENSITY SS W/MEALS&HS SC Acetaminophen 650 MG Q4HP PRN PO Morphine Sulfate 2 MG Q2HP PRN IV Nicotine 21 MG DAILYP PRN TD Ondansetron HCl 4 MG Q6HP PRN IV Sodium Chloride 1,000 ML .[id number] IV Sodium Chloride 10 ML PRN PRN IV 01/15 1500 /16 2300 01/16 0700 Intake Total 480 1382 879 Output Total Balance 480 1382 879 Intake, IV 902 879 Intake, Oral 480 480 Output, Stool Last VS-Temp:97.7 B/P:161/68 Pulse:77 Resp:16 SaO2:95 ROOM AIR Last weight lbs:99 oz:6 K.076 Method:Bed Scales Exam General appearance: alert, no acute distress Cardiovascular: regular rate & rhythm, murmur Respiratory: clear to auscultation (bilat anterior and posterior) ABD: non-distended, soft, hyper BS; tender in RUQ and periumbilical Extremities: no calf tenderness, no pedal edema Assessment/Plan Problem List 1. Acute cholecystitis 2. Cholelithiases 3. HTN (hypertension) 4. Diabetes mellitus type 2 in nonobese 5. Hx of arteriosclerotic cardiovascular disease 6. Tobacco use disorder Patient condition Stable Plan: WBC's have decreased; Is being followed by the surgeon; for US of the gallbladder This inpt stay is expected to cross 2 MNs from start of care Yes (Sofía Siddiqi APRN) Subjective Date 01/16/17 Assessment/Plan Problem List 1. Acute cholecystitis 2. Cholelithiases 3. HTN (hypertension) 4. Diabetes mellitus type 2 in nonobese 5. Hx of arteriosclerotic cardiovascular disease 6. Tobacco use disorder Plan: Pt seen and examined this AM. SHe feel a little better. No further vomiting. Cardiology eval pending. (Chris Murphy MD) at 0840 at 1844
--- NOTE | 2017-01-16 08:40 | SURGEON PROGRESS NOTE ---
Subjective data Subjective data: MIN ALMEIDA is a 86 F .Patient denies complaint of nausea and vomitting.She reports her last pain level as 0 on a 0-10 pain scale. Patient states she still is having diarrhea. No severe abdominal pain but having some "soreness" in the RIGHT lower quadrant. Assessment findings Assessment Exam General appearance: normal appearance ABD: non-distended, soft, no tenderness Patient plan Plan: Antibiotics, Cardiology at 0840
[2017-01-16 09:00] VITALS: BP 161/68
--- NOTE | 2017-01-16 10:13 | CONSULT NOTE ---
See Addendum Standard Demographics Patient Demo Date of Consultation: 01/16/17 Referring Provider: Jorge Murphy MD Reason for Consultation: Pre op Evaluation PRIMARY DIAGNOSIS: ACUTE CHOLECYSTITIS Problem list Problem list: 1. Coronary artery disease A. History of coronary bypass grafting greater than 20 years ago, [facility]. 2. Hypertension 3. Hyperlipidemia 4. Tobacco use, continued 5. Diabetes mellitus, treated for greater than 10 years per patient 6. Hard of hearing 7. History of paroxysmal atrial tachycardia, on verapamil. History of present illness: History of present illness: 86-year-old white female with past medical history as noted above admitted for nausea and vomiting with diarrhea and RIGHT sided abdominal pain. Patient found to have evidence of cholecystitis with consideration for surgical correction. Due to past medical history and cardiac risk factors, cardiology consulted for preop evaluation. Patient denies any recent chest pain, pressure or tightness with exertion. She does state that she lives a very sedentary lifestyle in a small apartment by herself. She does relate some episodes of falling recently but contributes this to changing position too quickly and denies loss of consciousness. She states it has been a few years since her last cardiac evaluation. Electrocardiogram this admission shows sinus tachycardia at 101 bpm, septal infarct pattern with interventricular conduction delay in a LEFT bundle branch block pattern and nonspecific ST-T abnormalities. No significant change compared with previous tracings dating back to 2010. Past Medical History: General: Hypertension Yes CVA No Seizures No TB Yes COPD No Asthma No Diabetes Yes Insulin Dependent No Insulin Pump No Angina No OH Yes Hyperlipidemia Yes Urinary No Cancer Yes Rheumatic H.D. No Ulcers No MRSA No GB Disease Yes Other PAT Additional hx MACULAR DEG-LEFT EYE Past Surgical HX: Previous Surgery?Y Coronary Artery Bypass ANGIOPLASTY PARTIAL RIGHT HIP REPLACE Allergies Coded Allergies: Tetanus Vaccines and Toxoid (TETANUS VACCINES & TOXOID) (08/15/16) streptomycin (08/15/16) Home medications: Active Scripts HYDROCODONE/ACETAMINOPHEN ([place] 5-325 Tablet) 1 TAB PO Q6HP PRN MODERATE PAIN #60 TAB Prov: 08/19/16 Reported Medications Losartan Potassium (Losartan 50MG) 50 MG PO DAILY #30 TAB Meclizine Hcl (Meclizine Hydrochloride) 12.5 MG PO TIDP PRN DIZZINESS Diazepam (Valium 2MG) 2 MG PO TID PRN Atorvastatin Calcium (Lipitor 10MG) 10 MG PO QHS ASPIRIN (Aspirin) 81 MG PO DAILY Verapamil Hcl (Calan SR 240MG) 240 MG PO DAILY Glimepiride (Amaryl) 2 MG PO DAILY #30 TAB METFORMIN HCL (Glucophage) 1,000 MG PO DAILY Metoprolol Succinate Xl (Toprol Xl) 50 MG PO DAILY CHOLECALCIFEROL (VITAMIN D3) (Vitamin D3) 1,000 IUNITS PO DAILY METFORMIN HCL (Glucophage 850 Mg Tablet) 500 MG PO BEDTIME Niacin 250 MG PO BID Ferrous Sulfate (Iron Tablet) 325 MG PO DAILY Current Medications: Current Medications Ertapenem 1 GM Q24H IV Sodium Chloride 50 ML Ertapenem 1 GM Q24H IV (DC) Sodium Chloride 50 ML Ondansetron HCl 0 .STK-MED ONE .ROUTE (DC) Ertapenem 0.5 GM Q24H IV (DC) Sodium Chloride 50 ML Irbesartan 75 MG DAILY PO Metoprolol Succinate 50 MG DAILY PO Verapamil HCl 240 MG DAILY PO Diagnostic Test (Pha) 1 EACH W/MEALS&HS FS Insulin Human [rDNA origin] SEE ADMIN CRITERIA FOR LOW INTENSITY SS W/MEALS&HS SC Acetaminophen 650 MG Q4HP PRN PO Morphine Sulfate 2 MG Q2HP PRN IV Nicotine 21 MG DAILYP PRN TD Ondansetron HCl 4 MG Q6HP PRN IV Sodium Chloride 1,000 ML .[id number] IV Sodium Chloride 10 ML PRN PRN IV Immunization HX DT/Tetanus N Flu REFUSES Pneumonia Refuses TB Test in last year No Family history Family HX Family Hx Insignificant No Diabetes Yes CAD Yes Hypertension Yes Hyperlipidemia Yes Cancer No TB Yes Social Hx: Smoking HX Tobacco Yes Type Cigarettes Packs/day < 1 PACK Are you/the child exposed to second-hand smoke: No Alcohol Alcohol: No Hx of Drug Use Drug Use? No Patien't marital status is Patient's support system is good Review of systems: Constitutional No: no symptoms reported. Respiratory No: no symptoms reported. Cardiovascular palpitations Gastrointestinal/Abdominal abdominal pain, diarrhea, nausea Genitourinary No: no symptoms reported. Musculoskeletal No: no symptoms reported. Neurological No: no symptoms reported. Exam: Admission Vital Signs: 1ST Vital Signs Result Date Time Pulse Ox 97 01/14 2152 B/P 180/71 01/15 2152 Temp 98.7 01/15 2152 Pulse 52 01/15 2152 Resp 18 01/15 2152 O2 Delivery ROOM AIR 01/15 207 Last Vital Signs: Vital Signs Result Date Time Pulse Ox 95 01/16 900 B/P 161/68 01/16 900 Temp 97.7 01/16 900 Pulse 77 01/16 09 Resp 16 01/16 900 O2 Delivery ROOM AIR 01/16 08 Exam General appearance: alert, awake, no acute distress Neck: no JVD, carotid bruit, right-sided carotid bruit noted on exam. Cardiovascular: regular rate and rhythm with grade 1 to 2/6 systolic ejection murmur noted along the LEFT sternal border. Respiratory: diminished breath sounds bilaterally but with no rales or wheezing noted. ABD: soft Extremities: moves all, no peripheral edema Neuro: alert, intact, oriented, speech clear Laboratory data: Laboratory Tests 01/16/17 0625: Sodium 141, Potassium 3.8, Chloride 109 H, Carbon Dioxide 24, BUN 15, Creatinine 0.9, Estimated Creat Clear 32 L, Estimated GFR (MDRD) 59, Glucose 64 L, Calcium 8.5, WBC 16.0 H, RBC 3.40 L, Hgb 10.2 L, Hct 31.2 L, MCV 91.9, RDW 14.5, Plt Count 200, MPV 6.5 L, Gran % 81.2 H, Gran # 13.0 H, Lymphocytes % 13.5, Monocytes % 4.2, Eosinophils % 0.9, Basophils % 0.1, Lymphocytes # 2.2, Monocytes # 0.7, Eosinophils # 0.1, Basophils # 0.0, PUBS MCHC 32.3, MCH 29.7 01/16/17 0611: POC Glucose 66 L 01/15/17 2006: POC Glucose 203 H 01/15/17 1130: POC Glucose 133 H 01/15/17 1000: Stl Cyclospora species NOT DETECTED, Stool Rotavirus (PCR) NOT DETECTED, Stool Campylobacter PCR NOT DETECTED, Stool Giardia Lamblia PCR NOT DETECTED, Stl Norovirus GI/GII PCR NOT DETECTED, Adenovirus (PCR) NOT DETECTED, C. difficile Tox (PCR) NOT DETECTED, E. coli (PCR) NOT DETECTED, Yersinia (PCR) NOT DETECTED 01/15/17 0905: Sodium 139, Potassium 4.4, Chloride 104, Carbon Dioxide 21 L, BUN 21 H, Creatinine 1.1 H, Estimated Creat Clear 26 L, Estimated GFR (MDRD) 47 L, Glucose 172 H, Calcium 9.0, Total Bilirubin 0.5, AST 47 H, ALT 41, Alkaline Phosphatase 90, Total Protein 7.1, Albumin 3.4, Globulin 3.7 H, Albumin/ Globulin Ratio 0.9 L, Amylase 90, Lipase 115, WBC 22.3 *H, RBC 3.88 L, Hgb 11.7 L, Hct 35.7 L, MCV 92.0, RDW 14.3, Plt Count 233, MPV 7.5, Gran % 89.4 H , Gran # 20.0 H, Lymphocytes % 6.2 L, Monocytes % 4.3, Eosinophils % 0.1, Basophils % 0.1, Lymphocytes # 1.4, Monocytes # 1.0, Eosinophils # 0.0, Basophils # 0.0, PUBS MCHC 32.7, MCH 30.1 01/15/17 0620: POC Glucose 176 H 01/14/17 2235: Sodium 138, Potassium 4.6, Chloride 101, Carbon Dioxide 19 L, BUN 30 H, Creatinine 1.4 H, Estimated Creat Clear 20 L, Estimated GFR (MDRD) 36 L, Glucose 242 H, Calcium 9.5, Total Bilirubin 0.4, AST 60 H, ALT 44, Alkaline Phosphatase 96, Total Protein 7.3, Albumin 3.6, Globulin 3.7 H, Albumin/ Globulin Ratio 1.0 L, Amylase 227 H, Lipase 268, WBC 17.4 H, RBC 3.87 L, Hgb 11.6 L, Hct 36.6 L, MCV 94.6, RDW 14.1, Plt Count 228, MPV 7.1 L, Gran % 86.4 H, Gran # 15.0 H, Total Counted 100, Lymphocytes % 9.4 L, Monocytes % 4.1, Eosinophils % 0.1, Basophils % 0.1, Neutrophils 84 H, Lymphocytes (Manual) 10, Lymphocytes # 1.6, Monocytes (Manual) 6, Monocytes # 0.7, Eosinophils # 0.0, Basophils # 0.0, Platelet Estimate NORMAL, Poikilocytosis 2+, Anisocytosis 1+, Farrell Cells 2+, PUBS MCHC 31.8, [facility] 30.1 01/14/17 2223: Stl Cyclospora species NOT DETECTED, Stool Rotavirus (PCR) NOT DETECTED, Stool Campylobacter PCR NOT DETECTED, Stool Giardia Lamblia PCR NOT DETECTED, Stl Norovirus GI/GII PCR NOT DETECTED, Adenovirus (PCR) NOT DETECTED, C. difficile Tox (PCR) NOT DETECTED, E. coli (PCR) NOT DETECTED, Yersinia (PCR) NOT DETECTED Plan: Assessment: 1. Cholecystitis 2. Coronary disease with history of coronary bypass grafting. Clinically asymptomatic at this time in a patient with sedentary lifestyle. 3. Diabetes mellitus 4. Chronic kidney disease, stage III with creatinine 1.1 and GFR of 47 year and 5. Anemia 6. Tobacco use, continued 7. History of hypertension. 8. History of hyperlipidemia, statin 9. RIGHT carotid artery bruit on exam 10. Systolic ejection murmur on exam Recommendations: 1. Obtain echocardiogram to evaluate LEFT atrial ejection fraction as well as cardiac murmur on exam. 2. Obtain bilateral carotid artery ultrasound due to carotid bruit on exam with history of recent falls. 3. Continue beta jose therapy will switch to Coreg and shows better results in diabetic patients. 4. If surgery considered here then would use perioperative nitrates. Further preoperative evaluation recomendations pending results of echocardiogram. at [phone]
--- NOTE | 2017-01-16 11:10 | CARDIOVASCULAR REPORT ---
"Cerebrovascular Exam Indications: 785.9 Bruit. IMPRESSIONS 1. The bilateral vertebral arteries are patent with normal antegrade flow. 2. Study suggests 20-49%(upper end of scale)stenosis involving the right internal carotid artery. 3. Study suggests less than 20% stenosis involving the left internal carotid artery. History: A bruit of the right carotid artery. Coronary artery disease. Risk factors: Current tobacco use. Hypertension. Hyperlipidemia. Carotid duplex study. Complete study and Doppler flow study including spectral analysis, color and hennessy scale imaging. Height: Height: 154.9cm. Height: 61in. Weight: Weight: 44.9kg. Weight: 98.8lb. Body mass index: BMI: 18.7kg/m^2. Body surface area: BSA: 1.39m^2. Location: Bedside. Patient status: Inpatient. Tables: Arterial flow: + +--------+--------+ |Location |V sys |V ed | + +--------+--------+ |Right CCA - proximal|106cm/s |19.6cm/s| + +--------+--------+ |Right CCA - distal |62.9cm/s|16.5cm/s| + +--------+--------+ |Right ECA |98.2cm/s|--------| + +--------+--------+ |Right ICA - proximal|128cm/s |19.6cm/s| + +--------+--------+ |Right ICA - mid |77.8cm/s|20.4cm/s| + +--------+--------+ |Right ICA - distal |82.5cm/s|19.6cm/s| + +--------+--------+ |Right vertebral |54.2cm/s|--------| + +--------+--------+ |Left CCA - proximal |69.9cm/s|18.1cm/s| + +--------+--------+ |Left CCA - distal |68.4cm/s|17.3cm/s| + +--------+--------+ |Left ECA |78.6cm/s|--------| + +--------+--------+ |Left ICA - proximal |81.7cm/s|17.3cm/s| + +--------+--------+ |Left ICA - mid |75.4cm/s|22.8cm/s| + +--------+--------+ |Left ICA - distal |88.8cm/s|25.9cm/s| + +--------+--------+ |Left vertebral |46.4cm/s|--------| + +--------+--------+ Velocity ratios: + + + + + + | |Right, V sys|Right, V ed|Left, V sys|Left, V ed| + + + + + + |Max ICA/dist CCA|2.03 |1.24 |1.3 |1.5 | + + + + + + (Report amended ) Electronically signed by: Valdo Keane [id number]"
[2017-01-16 11:49] LABS: NEUTROPHILS 94 % (42-76)
--- NOTE | 2017-01-16 15:57 | RADIOLOGY REPORT PS360 ---
PROCEDURE: 2-D M-mode and color Doppler study INDICATIONS FOR THE TEST: Chest pain COPD Heart Murmur Tobacco Smoking+ Palpitations+ Fatigue Syncope Edema Hypertension+Diabetes Mellitus+ Rheumatic Fever+ SOB DEL RIO Obesity Hyperlipidemia+ Family History HD Additional History Pre-op eval for gallbladder surgery, CAD, CABG 24 years ago PATIENT INFORMATION HEIGHT: 61 WEIGHT: 99 GENDER: Female B/P: 180/71 2-D/M-MODE INTERPRETATION: 2-D MEASUREMENTS OBSERVED VALUES IN CMS Right Ventricular Dimension (RVDd) 2.7 Interventricular Septum (Thickness)(IVsd) 1.0 Left Ventricular Internal Dimensions(LVIDd) 3.2 Left Ventricular Posterior Wall (Thickness)(LVPWd) 1.0 Aortic Root 1.8 Aortic Cusp Separation 1.1 Left Atrial Dimensions (LAD) 4.7 2D 1. Left atrium is moderately enlarged, left ventricle is normal size, there is mild qualitative concentric left ventricular hypertrophy present, visually estimated ejection fraction of 55% with no obvious regional wall motion abnormality. 2. The right atrium is mildly enlarged, the right ventricle is mildly dilated with normal contractility. 3. The aortic valve is thickened and calcified leaflet continue to display mobility. 4. The mitral valve has dense mitral calcification. 5. The tricuspid valve leaflets are minimally thickened. 6. The pulmonic valve is not well visualized. 7. No significant pericardial effusion noted. DOPPLER INTERROGATION: 1. The aortic outflow velocities mildly increased, mean gradient across the valve is 8 mmHg, this does not represent any significant aortic stenosis. There is trace aortic insufficiency present. 2. The mitral inflow velocity within normal range, there is no mitral stenosis, there is mild mitral regurgitation, grade 1 diastolic dysfunction seen with tissue Doppler evidence of raised left atrial pressure. 3. There is moderate tricuspid regurgitation noted, calculated right ventricular systolic pressure 65 mmHg consistent with moderate bony hypertension. CONCLUSION: 1. Biatrial enlargement, normal left ventricular size, mild concentric left ventricular hypertrophy, visually estimated ejection fraction of 55% with no obvious regional wall motion abnormality, grade 1 diastolic dysfunction seen with Doppler evidence of raised left atrial pressure. 2. Thickened and calcified aortic valve without significant aortic stenosis, there is trace aortic insufficiency present. 3. Mild mitral and moderate tricuspid regurgitation, calculated right ventricular systolic pressure is 65 mmHg consistent with moderate pulmonary hypertension. 4. No significant pericardial effusion noted.
[2017-01-16 16:00] VITALS: BP 139/60
--- NOTE | 2017-01-16 16:11 | ACUTE CARE PROGRESS NOTE (QUA) ---
Progress note: - Patient feels a bit better this afternoon. Multiple tests today including ECHO, Gallbladder ultrasound, and carotid doppler. Results of ultrasound still pending. Will await final results of gallbladder ultrasound and cardiology recommendations. May consider cholecystectomy in the morning if deemed a reasonable risk from cardiology standpoint. at 1610
--- NOTE | 2017-01-16 19:32 | RADIOLOGY REPORT PS360 ---
US GALLBLADDER (ABD LTD) Ordering Physician: Chris Murphy MD Patient Age: 86 years: Female HISTORY: PAIN, DIARRHEAabdominal pain TECHNIQUE: Ultrasound right upper quadrant COMPARISONrecent 01/14/2017 CT abdomen FINDINGS Pancreas. Unremarkable Liver. No focal lesions no bili ductal dilatation Portal vein upper normal size 1.4 cm.\ Gallbladder. Cholelithiasis with shadowing group of stones deep in gallbladder. These calculi measuring less than 10 mm. .gallbladder wall thickened measure up to 5 mm with minimal fluid surrounding gallbladder wall. Minimal Pericholecystic fluid. Thus As on CT, these findings are suggestive of developing acute cholecystitis. Common duct within normal limits... Nondilated 2.5 mm diameter. At [place] of liver. Right kidney 10.9 cm length.. No mass lesion. Slightly hypoechoic renal pyramids with upper normal echogenicity of the cortex IMPRESSION 1. Cholelithiasis - with gallbladder wall thickening along scant pericholecystic fluid. Findings s support acute cholecystitis; as does the recent 01/14/2017 CT abdomen 2. Common duct is normal.
[2017-01-16 19:49] VITALS: BP 139/60
[2017-01-17] VITALS (17 sets, daily range): BP systolic 131–172; BP diastolic 52–76
[2017-01-17 06:45] LABS: HEMOGLOBIN 9.6 g/dL (12.2-16.2); LYMPH % 19.9 % (10-50.0)
--- NOTE | 2017-01-17 08:02 | ACUTE CARE PROGRESS NOTE (QUA) ---
Progress Notes Subjective Date 01/17/17 Time 0759 Note Pt states she is still having pain in her abdomen but has not had any vomiting or nausea. She slept well. She was told she may have surgery today to remove her GB. Objective Findings Last VS-Temp:97.7 B/P:147/61 Pulse:62 Resp:18 SaO2:92 ROOM AIR Last weight lbs:99 oz:6 K.076 Method:Bed Scales Laboratory Tests 01/17/17 0620: WBC 10.2, RBC 3.17 L, Hgb 9.6 L, Hct 29.9 L, MCV 94.2, RDW 14.6, Plt Count 182, MPV 6.8 L, Gran % 73.5, Gran # 7.5, Lymphocytes % 19.9, Monocytes % 4.4, Eosinophils % 1.9, Basophils % 0.3, Lymphocytes # 2.0, Monocytes # 0.5, Eosinophils # 0.2, Basophils # 0.0, PUBS MCHC 32.0, MCH 30.2 01/17/17 0606: POC Glucose 74 01/17/17 0600: Sodium 142, Potassium 3.7, Chloride 112 H, Carbon Dioxide 22, BUN 13, Creatinine 0.9, Estimated Creat Clear 32 L, Estimated GFR (MDRD) 59, Glucose 63 L, Calcium 8.2 L, Total Bilirubin 0.3, AST 20, ALT 27, Alkaline Phosphatase 63 , Total Protein 5.3 L, Albumin 2.7 L, Globulin 2.6, Albumin/Globulin Ratio 1.0 L 01/16/17 2059: POC Glucose 140 H 01/16/17 1656: POC Glucose 90 01/16/17 1152: POC Glucose 84 Echo - 1. Biatrial enlargement, normal left ventricular size, mild concentric left ventricular hypertrophy, visually estimated ejection fraction of 55% with no obvious regional wall motion abnormality, grade 1 diastolic dysfunction seen with Doppler evidence of raised left atrial pressure. 2. Thickened and calcified aortic valve without significant aortic stenosis, there is trace aortic insufficiency present. 3. Mild mitral and moderate tricuspid regurgitation, calculated right ventricular systolic pressure is 65 mmHg consistent with moderate pulmonary hypertension. 4. No significant pericardial effusion noted. Exam General appearance: alert, awake, no acute distress Cardiovascular: regular rate & rhythm Respiratory: clear to auscultation ABD: non-distended, normal bowel sounds, no rebound, soft, no guarding, ttp in the RUQ Extremities: no peripheral edema Reviewed: GB U/S - cholelithiasis and cholecystitis Assessment/Plan Problem List 1. Acute cholecystitis 2. Cholelithiases 3. HTN (hypertension) 4. Diabetes mellitus type 2 in nonobese 5. Hx of arteriosclerotic cardiovascular disease 6. Tobacco use disorder Plan: Surgery has not seen patient yet today. Possible surgery planned to remove GB. This inpt stay is expected to cross 2 MNs from start of care Yes (Susie Alan) Subjective Date 01/17/17 Assessment/Plan Problem List 1. Acute cholecystitis 2. Cholelithiases 3. HTN (hypertension) 4. Diabetes mellitus type 2 in nonobese 5. Hx of arteriosclerotic cardiovascular disease 6. Tobacco use disorder 7. Debility 8. Post-operative state Plan: Pt seen and examined. She is stable to proceed with surgery when appropriate. (Katherine MAYO,Chris Patel) at 0802
--- NOTE | 2017-01-17 08:03 | ACUTE CARE PROGRESS NOTE (QUA) ---
Progress Notes Subjective Date 01/17/17 Time 0800 Note 86 yo WF in NAD. No chest pain overnight. Diarrhea and abdominal soreness persist. Objective Findings Last VS-Temp:97.7 B/P:147/61 Pulse:62 Resp:18 SaO2:92 ROOM AIR Last weight lbs:99 oz:6 K.076 Method:Bed Scales Exam General appearance: alert, awake, no acute distress Cardiovascular: regular rate & rhythm, murmur Respiratory: diminished breath sounds Extremities: moves all, no peripheral edema Neuro: alert, intact, oriented, speech clear Reviewed: medications, vital signs, lab results Assessment/Plan Problem List 1. Acute cholecystitis 2. Cholelithiases 3. HTN (hypertension) 4. Diabetes mellitus type 2 in nonobese 5. Hx of arteriosclerotic cardiovascular disease Assessment/Plan: Stable on current meds. Add 1/2" nitropaste luisito-operatively. 6. Tobacco use disorder Patient condition Stable Plan: continue current care This inpt stay is expected to cross 2 MNs from start of care Yes (Mark Harrison) Subjective Date 01/17/17 Time 0840 Assessment/Plan Problem List 1. Acute cholecystitis 2. Cholelithiases 3. HTN (hypertension) 4. Diabetes mellitus type 2 in nonobese 5. Hx of arteriosclerotic cardiovascular disease 6. Tobacco use disorder Plan: Less abdominal pain. Just feels weak. Noted with mild tachycardia to 110. Has not had morning meds yet. Plan is for lap raegan today. (Chris Murphy MD) at [phone] at [phone]
--- NOTE | 2017-01-17 12:22 | Operative Note ---
Surgeon/Diagnoses Surgeon/[employer](s) Date of procedure: 01/17/17 Surgeon: Sauol Hsu Diagnoses Pre-op diagnosis: Acute cholecystitis Post-op diagnosis Acute cholecystitis Possible acute appendicitis Procedure Procedure Procedure: Laparoscopic cholecystectomy Laparoscopic appendectomy Indications: MIN ALMEIDA is a 86 year-old Female with a history of diarrhea and pain. She presented to the emergency department in the evening of 01/14/17 with quite severe refractory diarrhea. She had some discomfort and pain in the RIGHT lower quadrant. She also had some nausea. She underwent a noncontrast CT scan of the abdomen and pelvis which revealed findings of cholelithiasis and CT evidence suggestive of cholecystitis. She was admitted for inpatient management and surgical consultation. She was seen and examined. She underwent stool studies which were negative for infectious colitis. She underwent ultrasound of the gallbladder which revealed findings of acute cholecystitis sonographically. She underwent cardiology for risk stratification and perioperative recommendations for medical management. Plan was made to proceed with cholecystectomy. Findings: Thickened edematous gallbladder with small stones. Erythematous indurated and edematous appendix. Procedure Description: Consent was obtained and patient was taken to the operating room. She was given preoperative intravenous antibiotics. In the operating room she was placed in a supine position. Gen. anesthesia was induced via endotracheal tube. Abdomen was prepped and draped in the standard surgical fashion. Subumbilical skin incision was made while performing abdominal wall lifted the Veress needle was inserted. CO2 pneumoperitoneum was achieved to 15 mmHg. 10/11 mm optical trocar was inserted at the umbilicus. She was positioned in reverse Trendelenburg with LEFT side down. A couple 5 mm trochars were inserted in the RIGHT abdomen. A 10 mm trocar was inserted in the epigastrium. She had some reactive peritoneal fluid which was suctioned free. Gallbladder was identified and grasped retracted anteriorly and superiorly over the dome the liver. Gallbladder was somewhat thickened and edematous. Infundibulum/Medhat's pouch of the gallbladder was retracted anterolaterally. Blunt dissection was carried out at the neck of the gallbladder bluntly incising the visceral peritoneum. The common duct was actually tented up and it was dissected inferiorly to expose the cystic duct and cystic artery. The critical view of safety was identified identifying the cystic duct, cystic artery, and liver posterior to the gallbladder. Cystic duct was isolated and multiply clipped and then divided. Cystic artery was coagulated with Lele ultrasonic harmonic antonio and divided. Gallbladder was dissected free from the liver in a retrograde fashion using Lele ultrasonic harmonic antonio. The bladder was placed within an Endo Catch retrieval device and removed from the peritoneal cavity via the umbilical trocar site which required some extension of the fascial incision. Gallbladder fossa was inspected for hemostasis which was assured. Irrigation was performed. Surveillance was then carried out examine the RIGHT colon which appeared somewhat dilated but there was no mass or evidence of inflammation. The appendix was identified and found to be edematous and mildly indurated. There was concern for possible appendicitis. There was also noted to be some erythema of the appendix. Given the appendix appearance as well as the patient's clinical presentation plan was made to proceed with laparoscopic appendectomy. An additional 5 mm trocar was inserted in the suprapubic location. Appendix was grasped with an endoscopic Gobles. The mesial appendix was carefully divided with Lele ultrasonic harmonic antonio dissecting down to the appendiceal base. The appendix was divided at its base with an endoscopic LOW linear cutting stapling device. Appendix was placed within an Endo Catch retrieval device and removed from the peritoneal cavity via the umbilical trocar site. Appendiceal stump was inspected for hemostasis and integrity which was assured. Trochars were removed as CO2 pneumoperitoneum was evacuated. Fascia at the umbilicus was closed with numerous interrupted 0 Vicryl sutures. Fascia at the epigastric trocar site was closed with a single 0 Vicryl suture. Local anesthetic was infiltrated. Skin incisions were closed 4-0 Monocryl in a subcuticular fashion. Steri-Strips and clean dry sterile dressings were applied. EBL (ml): 20 Anesthesia: GETA Specimens: Gallbladder and contents Appendix Disposition Disposition: To PACU at 1221
[2017-01-18] VITALS (9 sets, daily range): BP systolic 138–186; BP diastolic 60–76
--- NOTE | 2017-01-18 07:33 | ACUTE CARE PROGRESS NOTE (QUA) ---
Progress Notes Subjective Date 01/18/17 Time 07 Note 86 yo WF in bed eating breakfast. No chest pains but some soreness in abdomen from surgery yesterday. Main complaint is of continued dizziness that has bothered her for a few weeks. She states it is worse with sudden movement or turning her head. Objective Findings Last VS-Temp:97.7 B/P:161/70 Pulse:73 Resp:18 SaO2:94 OXYGEN Last weight lbs:99 oz:6 K.076 Method:Bed Scales Exam General appearance: alert, awake, no acute distress Cardiovascular: regular rate & rhythm, murmur Respiratory: clear to auscultation Reviewed: medications, vital signs, lab results Assessment/Plan Problem List 1. Acute cholecystitis 2. Cholelithiases 3. HTN (hypertension) 4. Diabetes mellitus type 2 in nonobese 5. Hx of arteriosclerotic cardiovascular disease 6. Tobacco use disorder Patient condition Stable Plan: Cardiac status stable. Discontinue NTG paste. Defer workup of dizziness to PCP. Continue coreg and ARB for hypertension. This inpt stay is expected to cross 2 MNs from start of care Yes at 0759
--- NOTE | 2017-01-18 07:35 | POST-OP PROGRESS NOTE ---
Post op subjective data Subjective data: MIN ALMEIDA is a 86 F . She is status post post op day # . Her wound is healing well without signs symptoms of infection.She reports her last pain level as 0 on a 0-10 pain scale. No major complaints. Tolerating diet. Post op assessment findings Assessment Exam General appearance: normal appearance, alert ABD: soft Post op patient plan Plan: Check labs This inpt stay is expected to cross 2 MNs from start of care Yes at 0775
[2017-01-18 07:59] LABS: LYMPH # 1.1 K/mm3 (0.7-4.5); LYMPH % 6.6 % (10-50.0)
[2017-01-18 08:00] LABS: HEMOGLOBIN 10.6 g/dL (12.2-16.2)
--- NOTE | 2017-01-18 08:28 | ACUTE CARE PROGRESS NOTE (QUA) ---
Progress Notes Subjective Date 01/18/17 Time 0730 Note Patient is worried that she does not feel great today; Her head has felt funny since after surgery; She denies CP, SOB, nausea, and abdominal pain; upper abdomen is sore. She is eating breakfast with eggs and toast and wants oatmeal. She has voided and had 2 small stools Objective Findings Laboratory Tests 01/18/17 0730: Sodium 138, Potassium 3.9, Chloride 108 H, Carbon Dioxide 20 L, BUN 15, Creatinine 1.0, Estimated Creat Clear 29 L, Estimated GFR (MDRD) 53 L, Glucose 166 H, Calcium 8.8, Total Bilirubin 0.3, AST 19, ALT 27, Alkaline Phosphatase 70, Total Protein 6.0 L, Albumin 2.8 L, Globulin 3.2, Albumin/Globulin Ratio 0.9 L, WBC 16.7 H, RBC 3.47 L, Hgb 10.6 L, Hct 32.1 L, MCV 92.4, RDW 14.5, Plt Count 220, MPV 6.4 L, Gran % 90.7 H, Gran # 15.4 H, Lymphocytes % 6.6 L, Monocytes % 2.7, Eosinophils % 0.1, Basophils % 0.0 L, Lymphocytes # 1.1, Monocytes # 0.5, Eosinophils # 0.0, Basophils # 0.0, PUBS MCHC 32.9, MCH 30.4 01/18/17 0641: POC Glucose 169 H 01/17/17 2133: POC Glucose 309 *H 01/17/17 1652: POC Glucose 216 H 01/17/17 1318: POC Glucose 103 Vital Signs Date Time Temp Pulse Resp B/P Pulse O2 O2 Flow FiO2 Ox Delivery Rate 01/18 0800 2 01/18 0800 97.9 80 20 158/69 96 OXYGEN 2 01/18 0700 2 01/18 0636 2 01/18 0535 2 01/18 0519 2 01/18 0400 97.7 73 18 161/70 94 OXYGEN 2 01/18 0302 2 01/18 0132 2 01/18 0122 2 01/18 0020 97.8 47 18 138/60 96 OXYGEN 2 01/18 0016 2 01/17 2343 2 01/178 2 01/17 2130 2 01/17 2037 2 01/17 2010 98.1 57 16 136/61 93 2 01/18 2000 2 01/18 2000 2 01/18 2000 94 OXYGEN 2 01/18 2000 94 OXYGEN 2 01/17 1944 97.9 53 18 132/63 91 2 01/17 1910 97.9 53 18 132/63 96 2 01/17 1854 2 01/17 1837 2 01/17 1802 97.3 55 18 138/76 94 2 01/17 1710 97.4 52 18 139/67 95 2 01/17 1700 2 01/17 1638 4 01/17 1638 97.9 51 16 131/59 93 OXYGEN 4 01/17 1610 97.3 54 18 153/65 95 2 01/17 1510 97.4 54 18 159/72 96 2 01/17 1500 4 01/17 1455 4 01/17 1440 97.4 47 18 141/62 91 3 01/17 1410 97.4 50 18 142/67 92 3 01/17 1340 97.4 45 18 136/57 90 3 01/17 1325 97.6 49 18 139/64 90 3 01/17 1310 97.4 55 18 151/63 91 3 01/17 1300 4 01/17 1255 97.4 50 18 137/69 90 3 01/17 1245 98.0 50 20 155/63 91 OXYGEN 18 1235 52 20 154/62 94 OXYGEN / 1233 97.7 / 1225 53 20 139/62 93 OXYGEN / 1215 97.7 50 12 127/55 93 OXYGEN / 1116 69 18 172/69 91 /18 0854 97.9 69 18 172/69 91 04/18 0823 97.9 69 18 172/69 91 ROOM AIR Current Medications Nitroglycerin 0 .STK-MED ONE .ROUTE (DC) Carvedilol 0 .STK-MED ONE .ROUTE (DC) Ketorolac Tromethamine 30 MG ONCE ONE IV (DC) Lactated Ringer's 1,000 ML .Q25H IV (DC) Meperidine HCl 12.5 MG [id number] PRN IV (DC) Ondansetron HCl 4 MG Q4HP PRN IV (DC) Sevoflurane 0 .STK-MED ONE IN (DC) Dexamethasone 0 .STK-MED ONE .ROUTE (DC) Glycopyrrolate 0 .STK-MED ONE .ROUTE (DC) Lidocaine HCl 0 .STK-MED ONE .ROUTE (DC) Neostigmine Methylsulfate 0 .STK-MED ONE .ROUTE (DC) Nitroglycerin 0 .STK-MED ONE .ROUTE (DC) Ondansetron HCl 0 .STK-MED ONE .ROUTE (DC) Propofol 0 .STK-MED ONE IV (DC) Rocuronium [place] 0 .STK-MED ONE .ROUTE (DC) Fentanyl Citrate 0 .STK-MED ONE IV (DC) Midazolam HCl 0 .STK-MED ONE .ROUTE (DC) Cefazolin Sodium 1 GM ONCE ONE IV (DC) Sodium Chloride 50 ML Ropivacaine 0 .STK-MED ONE .ROUTE (DC) Lidocaine HCl 0 .STK-MED ONE .ROUTE (DC) Lactated Ringer's 1,000 ML .STK-MED ONE IV (DC) Nitroglycerin 0.5 IN Q8 TP (DC) Carvedilol 6.25 MG BID PO Ertapenem 1 GM Q24H IV Sodium Chloride 50 ML Irbesartan 75 MG DAILY PO Verapamil HCl 240 MG DAILY PO Diagnostic Test (Pha) 1 EACH W/MEALS&HS FS Insulin Human [rDNA origin] SEE ADMIN CRITERIA FOR LOW INTENSITY SS W/MEALS&HS SC Acetaminophen 650 MG Q4HP PRN PO Morphine Sulfate 2 MG Q2HP PRN IV Nicotine 21 MG DAILYP PRN TD Ondansetron HCl 4 MG Q6HP PRN IV Sodium Chloride 1,000 ML .[id number] IV Sodium Chloride 10 ML PRN PRN IV 01/17 1500 01/17 2300 01/18 0700 Intake Total 120 360 Output Total 0 Balance 120 360 Intake, Oral 120 360 Intake, Tube 0 Irrigant Output, 0 Emesis Output, 0 Estimated Blood Loss Output, Other 0 Output, Stool Output, Urine 0 Patient 99 lb 6.01 oz Weight Last VS-Temp:97.9 B/P:158/69 Pulse:80 Resp:20 SaO2:96 OXYGEN Last weight lbs:99 oz:6 K.076 Method:Bed Scales ECHO 01/17/17 CONCLUSION: 1. Biatrial enlargement, normal left ventricular size, mild concentric left ventricular hypertrophy, visually estimated ejection fraction of 55% with no obvious regional wall motion abnormality, grade 1 diastolic dysfunction seen with Doppler evidence of raised left atrial pressure. 2. Thickened and calcified aortic valve without significant aortic stenosis, there is trace aortic insufficiency present. 3. Mild mitral and moderate tricuspid regurgitation, calculated right ventricular systolic pressure is 65 mmHg consistent with moderate pulmonary hypertension. 4. No significant pericardial effusion noted. Exam General appearance: alert, active, no acute distress, thin, sitting up in the bed eating breakfast. moves well in the bed Cardiovascular: regular rate & rhythm, murmur Respiratory: few bibasilar crackles ABD: non-distended, soft, bowel sounds present, 4 small abdominal wounds; dressings removed per Dr. Hsu and wounds with steri strips and appear clean and dry Extremities: no peripheral edema, no calf tenderness Assessment/Plan Problem List 1. Acute cholecystitis 2. Cholelithiases 3. HTN (hypertension) 4. Diabetes mellitus type 2 in nonobese 5. Hx of arteriosclerotic cardiovascular disease 6. Tobacco use disorder 7. Debility 8. Post-operative state Patient condition Improving Plan: continue current care, PT and OT referral; ambulation This inpt stay is expected to cross 2 MNs from start of care Yes (Sofía Siddiqi APRN) Subjective Date 01/18/17 Time 0905 Assessment/Plan Problem List 1. Acute cholecystitis 2. Cholelithiases 3. HTN (hypertension) 4. Diabetes mellitus type 2 in nonobese 5. Hx of arteriosclerotic cardiovascular disease 6. Tobacco use disorder 7. Debility 8. Post-operative state Plan: Pt seen and examined. She is doing well post-op. SHe lives alone and is concerned about being able to care for herself at home after discharge. Will get PT/OT eval and consult care management for discharge options. If she can not go home with family, may need shelter. (Chris Murphy MD) at 0850 at 0907
[2017-01-18 09:38] LABS: NEUTROPHILS 94 % (42-76)
[2017-01-19 03:49] VITALS: BP 137/56
--- NOTE | 2017-01-19 08:11 | ACUTE CARE PROGRESS NOTE (QUA) ---
Progress Notes Subjective Date 01/19/17 Time 0807 Note Patient doing well status post cholecystectomy. She has been eating and having bowel movements. She states her abdomen is sore. She denies any other pain. Objective Findings Last VS-Temp:97.9 B/P:137/56 Pulse:62 Resp:18 SaO2:93 ROOM AIR Last weight lbs:99 oz:6 K.076 Method:Bed Scales Laboratory Tests 01/18/17 2032: POC Glucose 181 H 01/18/17 1647: POC Glucose 192 H 01/18/17 1150: POC Glucose 332 *H Exam General appearance: alert, awake, no acute distress Cardiovascular: regular rate & rhythm Respiratory: clear to auscultation ABD: non-distended, normal bowel sounds, no rebound, soft, no guarding, ttp around incision sites only Extremities: no peripheral edema Assessment/Plan Problem List 1. Acute cholecystitis 2. Cholelithiases 3. HTN (hypertension) 4. Diabetes mellitus type 2 in nonobese 5. Hx of arteriosclerotic cardiovascular disease 6. Tobacco use disorder 7. Debility 8. Post-operative state Plan: PT felt patient would need a rehab stay. It was initially thought that the patient would be going home with her daughter with home health, however they have requested chcf placement according to the care management notes. Awaiting care management evaluation. This inpt stay is expected to cross 2 MNs from start of care No (Susie Alan) Subjective Date 01/19/17 Time 0822 Assessment/Plan Problem List 1. Acute cholecystitis 2. Cholelithiases 3. HTN (hypertension) 4. Diabetes mellitus type 2 in nonobese 5. Hx of arteriosclerotic cardiovascular disease 6. Tobacco use disorder 7. Debility 8. Post-operative state Plan: Pt seen and examined. Concur with above. SHe is stable for discharge when disposition plans confirmed. (Chris Murphy MD) at 0811 at 0824
[2017-01-19 08:12] VITALS: BP 145/64
[2017-01-19 12:17] VITALS: BP 110/44
--- NOTE | 2017-01-20 16:52 | DISCHARGE SUMMARY STANDARD ---
Discharge Summary ([facility]2) Date of admission: 01/15/17 Date of discharge: 01/19/17 Problem List: 1. Acute cholecystitis 2. Cholelithiases 3. HTN (hypertension) 4. Diabetes mellitus type 2 in nonobese 5. Hx of arteriosclerotic cardiovascular disease 6. Tobacco use disorder 7. Debility 8. Post-operative state History of present illness: Ms. Walters is a 89-year-old white female with known cholelithiasis who presented to the emergency room with a one to two-day history of nausea, vomiting, diarrhea, and abdominal pain. She was worked up in the emergency room and in addition to the cholelithiasis was also noted to have cholecystitis on her CT scan. She has been admitted for further treatment and surgical consultation. Exam on admission: General appearance: alert, appears not to feel well. Eyes: anicteric, conjunctiva clear ENT: dry mucous membranes, hearing deficit Neck: no carotid bruit, no thyromegaly Cardiovascular: regular rate & rhythm, Gr 1/6 systolic murmur Respiratory: clear to auscultation ABD: thin, soft, nondistended. Mild diffuse low abdominal tenderness. Extremities: no peripheral edema Skin: dry, normal color, warm Neuro: alert, no focal deficit Hospital Course: The patient was seen in consulation by Dr. Hsu. He performed a RUQ U/S which also showed cholelithiasis and cholecystitis. She was started on IV Invanz. She had a CXR done showing mild COPD and cardiomegaly. Cardiology was consulted for preop clearance. They ordered an Echo and a carotid artery U/S. The U/S showed 20-49% stenosis of the RACIEL and less than 20% stenosis of the LICA. Her echo showed an EF of 55%. Cardiology cleared her for surgery but recommended perioperative nitropaste. She had a laproscopic cholecystectomy on 01/17/17 and tolerated the procedure well. She was able to eat, drink, and did have BM's. She was seen by PT/OT. They felt she would need a rehab stay at a SNF. There were no beds available at the time, so the patient was discharged home with her daughter and home health. A bed was found for her on 01/20/17 at [place] and she will be admitted there for continued rehab. Discharge medications: Continue taking these medications: Verapamil Hcl (Calan SR 240MG) 240 MG TABLET.ER 240 MILLIGRAM ORAL DAILY METFORMIN HCL (Glucophage) 500 MG TABLET 1,000 MILLIGRAM ORAL DAILY Metoprolol Succinate Xl (Toprol Xl) 25 MG TAB.ER.24H 50 MILLIGRAM ORAL DAILY Atorvastatin Calcium (Lipitor 10MG) 10 MG TABLET 10 MILLIGRAM ORAL AT BEDTIME NIGHTLY ASPIRIN (Aspirin) 81 MG TAB.CHEW 81 MILLIGRAM ORAL DAILY CHOLECALCIFEROL (VITAMIN D3) (Vitamin D3) 1,000 IU TAB 1,000 INT. UNITS ORAL DAILY Diazepam (Valium 2MG) 2 MG TABLET 2 MILLIGRAM ORAL TID PRN Losartan Potassium (Losartan 50MG) 50 MG TABLET 50 MILLIGRAM ORAL DAILY Qty = 30 HYDROCODONE/ACETAMINOPHEN ([place] 5-325 Tablet) 1 EACH TABLET 1 TABLET ORAL EVERY 6 HOURS NEEDED as needed for MODERATE PAIN Qty = 60 METFORMIN HCL (Glucophage 850 Mg Tablet) 850 MG TABLET 500 MILLIGRAM ORAL BEDTIME Niacin (Niacin) 250 MG CAPSULE.ER 250 MILLIGRAM ORAL TWICE A DAY Ferrous Sulfate (Iron Tablet) 325 MG TABLET 325 MILLIGRAM ORAL DAILY Meclizine Hcl (Meclizine Hydrochloride) 25 MG TABLET 12.5 MILLIGRAM ORAL THREE TIMES A DAY NEEDED as needed for DIZZINESS Glimepiride (Amaryl) 2 MG TABLET 2 MILLIGRAM ORAL DAILY Qty = 30 Disposition: F/U with: Chris Murphy MD Follow up: 7 DAYS Activity: Cont Current activity Diet: Diabetic Diet Discharge to: HOME Agency needed? Y Specify: HOME HEALTH at 3368
== END 2017-01-19 13:35 | disposition home health service (06) | DRG 418 ==
LOC: ER 21:48 → 2ND 01-15 01:02
PROVIDERS: Emergency Medicine; Family Medicine; Surgery
PROC: 0FT44ZZ Resection of Gallbladder, Percutaneous Endoscopic Approach (ICD-10-PCS; principal; 2017-01-17 11:30)
PROC: 0DTJ4ZZ Resection of Appendix, Percutaneous Endoscopic Approach (ICD-10-PCS; principal; 2017-01-17 11:30)
DX: K80.00 Calculus of gallbladder with acute cholecystitis without obstruction (principal); K35.80 Unspecified acute appendicitis; E11.9 Type 2 diabetes mellitus without complications; Z95.1 Presence of aortocoronary bypass graft; I10 Essential (primary) hypertension; Z72.0 Tobacco use; I25.10 Atherosclerotic heart disease of native coronary artery without angina pectoris
CPT/HCPCS: J1335; J2405